=== PATIENT | female | born 1945 | race Caucasian/White ===

== ENCOUNTER 2023-03-17 13:07 | Outpatient (CLI) | payer MEDICARE, OTHER, SELFPAY ==
--- NOTE | 2023-03-17 13:15 | XR_ITS ---
WS: [id number] Cervical spine, 5 views, 03/17/2023 Clinical Data: SPONDYLOSIS W/O MYELOPATHY OR RADICULOPATHY,CERVICAL REGION Comparison: None. Findings: No compression fractures are seen. There is degenerative disc narrowing at all levels from C2-C3 through C6-C7. There is osteoarthritis at C1-C2. There is facet joint arthritis at all levels. There are anterior and posterior osteophytes. There is no prevertebral soft tissue swelling. The odon toid is unremarkable. The soft tissues of the neck and the lung apices are normal. Impression: Multilevel osteoarthritis, facet joint arthritis and degenerative disc narrowing.
== END 2023-03-17 13:08 | disposition home or self-care (01) ==
PROVIDERS: Family Provider Family Medicine; PCP Family Medicine; Visit Provider Family Medicine
DX: M54.12 Radiculopathy, cervical region (principal); M47.812 Spondylosis without myelopathy or radiculopathy, cervical region; M46.92 Unspecified inflammatory spondylopathy, cervical region
CPT/HCPCS: 72040

== ENCOUNTER → 2025-02-12 08:45 | Outpatient (BNVA) | payer MEDICARE, SELFPAY | PROVIDERS: Family Provider Family Medicine; PCP Family Medicine; Visit Provider Nurse Practitioner Family | DX: M70.21 Olecranon bursitis, right elbow (principal); M70.22 Olecranon bursitis, left elbow; L82.1 Other seborrheic keratosis; L57.8 Other skin changes due to chronic exposure to nonionizing radiation; M06.9 Rheumatoid arthritis, unspecified; L72.0 Epidermal cyst | CPT/HCPCS: 10060; 99203 ==